=== PATIENT | female | born 1940 | race Caucasian/White ===

== ENCOUNTER 2019-06-23 09:35 | Outpatient (CLI) | payer BC ==
--- NOTE | 2019-06-23 12:38 | CT ---
CT CHEST WITH IV CONTRAST: CT ABDOMEN AND PELVIS WITH IV CONTRAST: HISTORY: Bowel mass. FINDINGS: The lungs are slightly hyperinflated. No enlarged lymph nodes within the mediastinum. No focal lung m ass, pleural fluid or pneumothorax. Calcified bilateral breast implants. Collapsed implant sac within the left implant capsule. Herniatio n of implant from the medial margin. Within the medial aspect of the right pectoralis muscle is a lob ular lipoma, measuring up to 8.7 cm x 4.6 cm. Lipoma is also evident within the left posterior parasp inal musculature, at the level of the lower thoracic spine. Large hiatal hernia with reflux of oral contrast. Calcification within the arterial structures. 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 Dorsal column stimulator is in place. Scattered diverticula of t he colon without adjacent inflammation. There is intussusception of the distal ileum, involving up to 8 cm length that is pulled into the ter kenny ileum. At the lead point is a smoothly marginated homogeneous fat density mass measuring up to 3.6 cm x 2.4 cm. No evidence of bowel obstruction. No free air or free fluid. The urinary bladder is decompressed. IMPRESSION: 1. 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 No bowel o bstruction. 2. Diverticulosis. No evidence of diverticulitis. 3. Hiatal hernia with reflux. 4. Bilateral breast implants with rupture of the left implant. 5. Atherosclerosis. 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 POS: TPC
== END 2019-06-23 09:36 | disposition home or self-care (01) ==
LOC: BICCT 09:35
PROVIDERS: ATTEND Internal Medicine
DX: K63.89 Other specified diseases of intestine (principal); D17.5 Benign lipomatous neoplasm of intra-abdominal organs; K57.30 Diverticulosis of large intestine without perforation or abscess without bleeding; K44.9 Diaphragmatic hernia without obstruction or gangrene; K21.9 Gastro-esophageal reflux disease without esophagitis; I70.90 Unspecified atherosclerosis; Z98.82 Breast implant status
CPT/HCPCS: 71260; 74177; 82565

== ENCOUNTER 2019-07-08 15:01 | Outpatient (CLI) | payer BC ==
[2019-07-08 16:17] LABS: #Eosinphils 0.1 thou/uL (0.0-0.7); #Lymphocytes 2.1 thou/uL (1.20-3.40); #Monocytes 0.8 thou/uL (0.11-0.59); #Neutrophils 4.6 thou/uL (1.40-6.50); %Basophils 0.6 % (0.0-1.0); %Eosinophils 0.9 % (0.0-10.0); %Lymphocytes 28.1 % (21.0-51.0); %Monocytes 10.3 % (0.0-10.0); %Neutrophils 60.1 % (42.0-75.0); Hemoglobin 9.7 g/dL (12.0-16.0); Mean Corpuscular Hemoglobin 20.3 pg (27.0-31.0); Mean Corpuscular Volume 67.6 fL (78.0-98.0); Mean Platelet Volume 9.3 fL (7.4-10.4); Platelet Count 363 thou/uL (130-400); RBC Distribution Width 16.5 % (11.5-14.5); Red Blood Cell (RBC) Count 4.77 mill/uL (4.20-5.40); White Blood Cell (WBC) Count 7.6 thou/uL (4.8-10.8)
[2019-07-08 16:33] LABS: Anion Gap 12 mmol/L (10-20); BUN (Urea Nitrogen) 12 mg/dL (9.8-20.1); Calc. Creatinine Clearance 0 mL/min (70-130); Calcium 9.5 mg/dL (7.8-10.44); Carbon Dioxide 24 mmol/L (23-31); Chloride 107 mmol/L (98-107); Estimated GFR-MDRD 65; Glucose 90 mg/dL (83-110); Potassium 4.3 mmol/L (3.5-5.1); Sodium 139 mmol/L (136-145)
[2019-07-08 18:26] LABS: Anisocytosis SLIGHT = 6-15 cells (100X) (0-5/hpf); Hypochromia SLIGHT = 6-15 cells (100X) (0-5/hpf); MDiff Complete? YES; Microcytosis SLIGHT = 6-15 cells (100X) (0-5/hpf); Ovalocytes SLIGHT = 2-5 cells (100X) (0-1/hpf); Platelet Morphology Comment Appears Adequate; Polychromasia SLIGHT = 2-3 cells (100X) (0-2/hpf)
--- NOTE | 2019-07-11 16:18 | EKG ---
Test Reason : Blood Pressure : / mmHG Vent. Rate : 068 BPM Atrial Rate : 068 BPM P-R Int : 146 ms QRS Dur : 076 ms QT Int : 388 ms P-R-T Axes : 037 -02 -06 degrees QTc Int : 412 ms Normal sinus rhythm Normal ECG No previous ECGs available Confirmed by DR. Niesha AMADOR ([id number]) on 07/11/2019 4:18:21 PM Referred By: LUIS Confirmed By:DR. Niesha AMADOR
== END 2019-07-08 15:02 | disposition home or self-care (01) ==
LOC: LABBT 15:01
PROVIDERS: ATTEND Specialist
DX: Z01.818 Encounter for other preprocedural examination (principal); K63.89 Other specified diseases of intestine
CPT/HCPCS: 80048; 85025; 93005; 93010

== ENCOUNTER 2019-07-08 15:30 | Inpatient (IN) | payer MEDICARE, BC ==
[2019-07-08 16:14] VITALS: BMI 28.5
--- NOTE | 2019-07-09 08:30 | HP ---
HISTORY OF PRESENT ILLNESS: Carolyn Garcia is an 78-year-old female, who presented with cough, underwent a chest x-ray leading to a CAT scan leading to abnormal findings incidentally on CAT scan of ileal mass undergoing EGD and colonoscopy by Dr. Martin. CT scan suggests a lipoma of the distal ileum, 3.6 cm with intussusception of the distal ileum. Also noting bilateral breast implants multiple other lipomas, chest and abdomen. Chest x-ray on 04/06/2019 unremarkable. Upper and lower endoscopy revealing a frondlike villous polypoid partially obstructing 3 to 4 cm diameter, otherwise diverticulosis of sigmoid colon. Upper endoscopy revealed a 3 cm hiatal hernia otherwise normal.Biopsies reveal peptic duodenitis. No Emmanuel esophagus. Biopsy of small bowel terminal ileal mass revealed pyogenic granuloma. No malignancy. The patient reports having intermittent abdominal pain. ALLERGIES: LISINOPRIL. TOBACCO: None. ALCOHOL: Rarely. PAST SURGICAL HISTORY: Transvaginal hysterectomy; spinal cord stimulator, now has been turned off and not used in more than 5 years. She says it does not bother her. She is not bothered to have it removed. MEDICATIONS: Pravastatin 40 mg a day. REVIEW OF SYSTEMS: Ten-point noncontributory. PHYSICAL EXAMINATION: VITAL SIGNS: 149 pounds, 5 feet, 191/92, 69, 98 degrees. HEAD, EARS, EYES, NOSE, AND THROAT: Unremarkable. LUNGS: Clear to auscultation. CARDIAC: Regular rate and rhythm without murmur or gallop. ABDOMEN: Soft and nontender. EXTREMITIES: Unremarkable. ASSESSMENT AND PLAN: 1. Ileal mass, plan laparoscopic resection. Plan admission, postoperatively at least hospitalization overnight. She understands risks of infection, bleeding, reoperation, anastomotic lesion and consents. 2. Hysterectomy. 3. Spinal cord stimulator has been turned off for several years. Job ID: [id number] [facility]
[2019-07-14] MEDS ORDERED: Ketorolac Tromethamine 30 MG/ML VIAL ONE (08:58)
[2019-07-14] MEDS ORDERED: Meropenem 2 GM in Admixture Fee 1 EACH IVPB SCH (09:15)
[2019-07-14] MEDS ORDERED: Fentanyl 100 MCG/2 ML VIAL ONE ×2 (09:40→09:44)
[2019-07-14] MEDS ORDERED: Midazolam HCl 2 mg/2 ml Vial ONE (09:40)
[2019-07-14] MEDS ORDERED: PROPOFOL 200 MG/20 ML VIAL ONE (10:09)
[2019-07-14] MEDS ORDERED: Dexamethasone 20 MG/5 ML VIAL ONE (10:09)
[2019-07-14] MEDS ORDERED: Lidocaine 1% PF 5 ML VIAL ONE (10:09)
[2019-07-14] MEDS ORDERED: Ropivacaine 0.5% HCl/PF (150 MG/30 ML VIAL) ONE (10:09)
[2019-07-14] MEDS ORDERED: Bupivacaine HCl 0.5%/Epinephrine 1:200,000/PF 30 ml Vial ONE (10:09)
[2019-07-14] MEDS ORDERED: Rocuronium Bromide 10 MG/ML (10ML VIAL) ONE (10:09)
[2019-07-14] MEDS ORDERED: EPINEPHrine 1 mg/ml MDV (1ml Charge) ONE (10:09)
[2019-07-14] MEDS ORDERED: Ondansetron PF 4 MG/2 ML Vial ONE (10:09)
[2019-07-14] MEDS ORDERED: PHENYLEPHRINE-NS 100 MCG/ML 10 ML SYRINGE ONE (10:09)
[2019-07-14] MEDS ORDERED: Ondansetron HCl/PF 4 MG/2 ML Vial IVP PRN (10:54)
[2019-07-14] MEDS ORDERED: Morphine 4 MG/ML VIAL SLOW IVP PRN (11:41)
[2019-07-14] MEDS ORDERED: Ondansetron PF 4 MG/2 ML Vial IVP PRN (11:41)
[2019-07-14] MEDS ORDERED: hydrALAZINE 20 MG/ML VIAL SLOW IVP PRN (11:41)
[2019-07-14] MEDS ORDERED: Morphine 2 MG/ML SYRINGE SLOW IVP PRN (11:41)
[2019-07-14] MEDS ORDERED: diphenhydrAMINE 50 MG/ML VIAL IVP PRN (11:41)
[2019-07-14] MEDS ORDERED: traMADol HCl 50 MG TAB PO PRN (11:45)
[2019-07-14] MEDS ORDERED: Acetaminophen 500 MG TAB PO PRN (11:45)
[2019-07-14] MEDS ORDERED: Ibuprofen 600 MG TAB PO PRN (11:45)
[2019-07-14] MEDS: Acetaminophen 1,000 MG in Premix Bag 1 BAG IVPB SCH ×3 (13:39→23:24)
[2019-07-14] MEDS: Ketorolac Tromethamine 30 MG/ML VIAL IVP SCH ×3 (13:40→23:24)
--- NOTE | 2019-07-14 14:11 | OP ---
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 PROCEDURES PERFORMED: Laparoscopic segmental small-bowel resection with primary anastomosis and reduction of intussusception. ANESTHESIA: General, TAP block. ESTIMATED BLOOD LOSS: Negligible. PROCEDURE FINDINGS: Intussusception ileum and small bowel tumor. DESCRIPTION OF PROCEDURE: The patient was taken to the operating room where under general anesthesia without a Murdock catheter, abdomen was clipped of hair, prepared with ChloraPrep and draped in routine fashion. Left lateral subcostal incision made and pneumoperitoneum to 15 mmHg was obtained with a Veress needle, replaced with a 5 port. Left lateral mid and left lower quadrant lateral incision made and 5 ports placed. Infraumbilical incision made and a 5 port placed. Omentum reflected cephalad. There was noted to be a tattooed area in the terminal ileum. The ileum was intussuscepted into the terminal ileum and into the cecum. This was reduced laparoscopically. The tumor mass appreciated laparoscopically. A 12 port placed in the lateral left abdomen and the small bowel on either side of the tumor mass divided with a KRISHNA white loaded stapler. Mesentery divided with the LigaSure for a wedge of mesentery. There was adequate ileum for small bowel anastomosis and small bowel anastomosis accomplished with enterotomy on each side of the ends of the resected small bowel and the stapler placed and fired and common defect closed with another fire of the white load stapler. Mesentery closed with 3-0 silk [id number] sutures. Anastomosis noted to be intact and good hemostasis noted. No other abnormalities noted. The small bowel tumor mass was then brought out through the 12 port using a wound protector. Pneumoperitoneum and irrigant evacuated. Good hemostasis noted. All this was removed. The 15 mm port where it had been enlarged for the wound protector, the peritoneum and fascia closed with 0 PDS interrupted suture and anterior fascia closed with 0 PDS suture. Wounds irrigated. All skin incisions were approximated with subdermal 4-0 Monocryl and [place] glue applied. The patient tolerated the procedure well. Job ID: [id number]
[2019-07-14] MEDS: D5 1/2 NS w/20 mEq KCL 1,000 ML IV SCH ×2 (14:44→23:26)
[2019-07-14] MEDS: Atorvastatin Calcium 10 MG TAB PO SCH (20:15)
[2019-07-14] MEDS: Enoxaparin Sodium 40 MG/0.4 ML SYRINGE SC SCH (20:17)
[2019-07-15 05:01] LABS: #Lymphocytes 1.3 thou/uL (1.20-3.40); %Basophils 0.1 % (0.0-1.0); %Lymphocytes 8.5 % (21.0-51.0); %Monocytes 6.6 % (0.0-10.0); %Neutrophils 84.8 % (42.0-75.0); Hemoglobin 8.5 g/dL (12.0-16.0); Mean Corpuscular HGB CONC 30.3 g/dL (32.0-36.0); Mean Corpuscular Hemoglobin 20.5 pg (27.0-31.0); Mean Corpuscular Volume 67.8 fL (78.0-98.0); Mean Platelet Volume 9.6 fL (7.4-10.4); Platelet Count 289 thou/uL (130-400); RBC Distribution Width 16.3 % (11.5-14.5); Red Blood Cell (RBC) Count 4.13 mill/uL (4.20-5.40); White Blood Cell (WBC) Count 15.3 thou/uL (4.8-10.8)
[2019-07-15 05:21] LABS: Anion Gap 9 mmol/L (10-20); BUN (Urea Nitrogen) 12 mg/dL (9.8-20.1); Calc. Creatinine Clearance 56 mL/min (70-130); Carbon Dioxide 26 mmol/L (23-31); Chloride 107 mmol/L (98-107); Estimated GFR-MDRD 63; Glucose 115 mg/dL (83-110); Potassium 4.6 mmol/L (3.5-5.1); Sodium 137 mmol/L (136-145)
[2019-07-15] MEDS: Ketorolac Tromethamine 30 MG/ML VIAL IVP SCH ×3 (06:34→18:20)
[2019-07-15] MEDS: Acetaminophen 1,000 MG in Premix Bag 1 BAG IVPB SCH (06:36)
[2019-07-15] MEDS: D5 1/2 NS w/20 mEq KCL 1,000 ML IV SCH ×3 (06:36→19:28)
[2019-07-15] MEDS: Pantoprazole 40 MG VIAL IVP SCH (08:17)
--- NOTE | 2019-07-15 14:35 | PRG ---
DATE OF SERVICE: SUBJECTIVE: Carolyn Garcia is doing well today. She is tolerating her diet. She has not had any experienced flatus or bowel movement. OBJECTIVE: VITAL SIGNS: Temperature 98.2 degrees, pulse 59, blood pressure 163/71. LUNGS: Clear to auscultation. CARDIAC: Regular rate and rhythm without murmur or gallop. ABDOMEN: Soft, nontender. Bowel sounds present. Surgical wounds look good. EXTREMITIES: Unremarkable. ASSESSMENT: Small bowel tumor with intussusception, status post laparoscopic resection yesterday. PLAN: Observe today and probably discharge home tomorrow. Overall, she is doing well. Job ID: [id number]
[2019-07-15] MEDS: Atorvastatin Calcium 10 MG TAB PO SCH (20:01)
[2019-07-15] MEDS: Enoxaparin Sodium 40 MG/0.4 ML SYRINGE SC SCH (20:01)
[2019-07-16] MEDS: Ketorolac Tromethamine 30 MG/ML VIAL IVP SCH ×3 (00:08→11:28)
[2019-07-16] MEDS: D5 1/2 NS w/20 mEq KCL 1,000 ML IV SCH ×2 (04:07→11:28)
[2019-07-16] MEDS: Pantoprazole 40 MG VIAL IVP SCH (08:25)
--- NOTE | 2019-07-16 10:40 | DIS ---
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 Pathology report pending. PROCEDURES IN THIS HOSPITALIZATION: Laparoscopic reduction of intussusception and small-bowel resection, ileum with primary anastomosis, laparoscopic. LABORATORY DATA: Discharge hemoglobin 8.5. Admission hemoglobin 9.7. DISCHARGE MEDICATIONS: Tylenol and Motrin as needed. Resume home medications. Pravastatin. DISCHARGE INSTRUCTIONS: Diet and activity as tolerated. Follow up in my office in 2 to 3 weeks. Pathology pending. HISTORY: An 78-year-old female. CAT scan demonstrating intussusception, small-bowel tumor, seen by Dr. Martin. Colonoscopy performed. Area biopsied and pedunculated small bowel tumor noted. The patient admitted, underwent the above operation. Postoperatively, did well and discharged to home. Job ID: [id number]
[2019-07-16 11:55] VITALS: BP 166/79; TEMP 98.2
== END 2019-07-16 12:09 | disposition home or self-care (01) | DRG 330 ==
LOC: SURG A 07-14 08:39
PROVIDERS: ADMIT Specialist; ATTEND Specialist
PROC: 0DSB4ZZ Reposition Ileum, Percutaneous Endoscopic Approach (ICD-10-PCS; principal; 2019-07-14)
PROC: 0DBB4ZZ Excision of Ileum, Percutaneous Endoscopic Approach (ICD-10-PCS; 2019-07-14)
DX: D49.0 Neoplasm of unspecified behavior of digestive system (principal); K56.1 Intussusception; Z88.8 Allergy status to other drugs, medicaments and biological substances; Z90.710 Acquired absence of both cervix and uterus; I10 Essential (primary) hypertension; E78.5 Hyperlipidemia, unspecified; Z98.49 Cataract extraction status, unspecified eye; K57.90 Diverticulosis of intestine, part unspecified, without perforation or abscess without bleeding; K44.9 Diaphragmatic hernia without obstruction or gangrene
CPT/HCPCS: 36415; 80048; 85025; 88307; 94760; C9113; J0131; J0171; J0360; J0670; J1100; J1650; J1885; J2001; J2250; J2270; J2405; J2704; J2795; J3010

== ENCOUNTER 2019-09-09 08:22 | Day surgery (SDC) | payer BC ==
[2019-09-09 11:37] LABS: #Eosinphils 0.1 thou/uL (0.0-0.7); #Lymphocytes 1.5 thou/uL (1.20-3.40); #Monocytes 0.6 thou/uL (0.11-0.59); #Neutrophils 4.1 thou/uL (1.40-6.50); %Basophils 0.1 % (0.0-1.0); %Eosinophils 1.4 % (0.0-10.0); %Lymphocytes 24.1 % (21.0-51.0); %Monocytes 9.7 % (0.0-10.0); %Neutrophils 64.7 % (42.0-75.0); Elliptocytes SLIGHT = 2-5 cells (100X) (0-1/hpf); Hemoglobin 7.1 g/dL (12.0-16.0); Hypochromia MODERATE=16-30 cells (100X) (0-5/hpf); MDiff Complete? YES; Mean Corpuscular Hemoglobin 18.4 pg (27.0-31.0); Mean Corpuscular Volume 63.3 fL (78.0-98.0); Mean Platelet Volume 10.8 fL (7.4-10.4); Microcytosis MODERATE=15-30 cells (100X) (0-5/hpf); Ovalocytes SLIGHT = 2-5 cells (100X) (0-1/hpf); Platelet Count 296 thou/uL (130-400); Polychromasia SLIGHT = 2-3 cells (100X) (0-2/hpf); RBC Distribution Width 17.2 % (11.5-14.5); Red Blood Cell (RBC) Count 3.87 mill/uL (4.20-5.40); Reflex for Review?? YES; Schistocytes SLIGHT = 2-5 cells (100X) (0-1/hpf); Tear Drops SLIGHT = 2-5 cells (100X) (0-1/hpf); White Blood Cell (WBC) Count 6.3 thou/uL (4.8-10.8)
[2019-09-09 15:56] VITALS: BP 196/85; TEMP 98.3
== END 2019-09-09 16:01 | disposition home or self-care (01) ==
LOC: ONC/OP 08:22
PROVIDERS: ATTEND Specialist
DX: D64.9 Anemia, unspecified (principal); D69.6 Thrombocytopenia, unspecified; Z88.8 Allergy status to other drugs, medicaments and biological substances
CPT/HCPCS: 36415; 36430; 85025; 85060; 86850; 86900; 86901; P9016

== ENCOUNTER 2019-09-15 11:37 | Outpatient (CLI) | payer BC ==
--- NOTE | 2019-09-15 13:07 | ULT ---
EXAM: US Thyroid STANDARD PROVIDED CLINICAL HISTORY: Thyroid nodule COMPARISON: None FINDINGS: The right lobe of thyroid gland measures 2.2 cm x 4.1 cm x 1.5 cm with the left lobe measuring 1.6 cm x 3.2 cm x 1.2 cm. There is an isoechoic round circumscribed nodule seen in the midportion and superior pole right lobe of the thyroid gland. This nodule measures 1.7 cm, and a few punctate echogenic foci are seen within the nodule. Multiple isoechoic and mildly heterogeneous nodules are seen in the left lobe of the thyroid gland. L argest slightly heterogeneous nodule is seen in the midportion left lobe of thyroid gland which measures 1.5 cm. The next largest nodule is seen in the inferior pole left lobe of thyroid gland whic h measures 1.3 cm. IMPRESSION: TI RADS level 4 nodule right lobe of the thyroid gland. According to ACR guidelines, fine-needle aspi ration of this nodule is recommended.
== END 2019-09-15 11:38 | disposition home or self-care (01) ==
LOC: BICULT 11:37
PROVIDERS: ATTEND Specialist
DX: E04.1 Nontoxic single thyroid nodule (principal)
CPT/HCPCS: 76536

== ENCOUNTER → 2019-10-13 | Day surgery (SDC) | payer BC ==
[~2019-10-13] MED LIST: Lidocaine 1% PF 5 ML VIAL ONE; Sodium Bicarbonate 2.5 MEQ/5 ML VIAL ONE
== END ==
LOC: ULT 12:14
PROVIDERS: ATTEND Specialist
DX: E04.1 Nontoxic single thyroid nodule (principal); I10 Essential (primary) hypertension; E78.5 Hyperlipidemia, unspecified; Z53.9 Procedure and treatment not carried out, unspecified reason; Z79.899 Other long term (current) drug therapy; Z88.8 Allergy status to other drugs, medicaments and biological substances; Z90.49 Acquired absence of other specified parts of digestive tract
CPT/HCPCS: J2001

== ENCOUNTER 2020-05-12 12:33 | Outpatient (CLI) | payer BC, OTHER ==
[2020-05-13 14:49] LABS: SARS-CoV-2 MS2 Positive; SARS-CoV-2 N Gene Negative; SARS-CoV-2 S Gene Negative; SARS-CoV-2 by NAA Not Detected (NotDetected); SARS-CoV-2 orf1ab Negative
== END 2020-05-12 12:34 | disposition home or self-care (01) ==
LOC: LABSCS 12:33
PROVIDERS: ATTEND Specialist
DX: E04.1 Nontoxic single thyroid nodule (principal); Z20.828 Contact with and (suspected) exposure to other viral communicable diseases
CPT/HCPCS: 87635; U0003

== ENCOUNTER 2020-05-17 12:04 | Day surgery (SDC) | payer BC ==
[2020-05-17] MEDS ORDERED: Sodium Bicarbonate 2.5 MEQ/5 ML VIAL ONE (12:26)
[2020-05-17] MEDS ORDERED: Lidocaine 1% PF 5 ML VIAL ONE (12:26)
--- NOTE | 2020-05-17 14:17 | ULT ---
Exam: Right thyroid fine-needle aspiration with ultrasound guidance HISTORY: Solid mass in the right thyroid lobe COMPARISON: 09/15/2019 FINDINGS: Successful right thyroid ultrasound fine needle aspiration. A total 4 25-gauge passes were performed. No immediate or postprocedure complications TECHNIQUE: Consent obtained to perform a ulcer guided fine-needle aspiration of a solid mass in the r ight thyroid lobe. Patient's right neck was prepped and draped in a sterile fashion. 1% lidocaine, buffered with sodium bicarbonate was used for local anesthesia. Under sonographic guidance, 25-gauge spinal needle was advanced into the solid mass in the right thyroid lobe. A total 4 passes were performed. There are no immediate or postprocedure complications IMPRESSION: Successful fine-needle aspiration of a right thyroid lobe solid mass.
[2020-05-17 14:47] VITALS: BMI 29.5
[2020-05-17 15:00] VITALS: BP 172/69; TEMP 97.8
== END 2020-05-17 14:20 | disposition home or self-care (01) ==
LOC: ULT 12:04
PROVIDERS: ATTEND Specialist
PROC: BG44ZZZ Ultrasonography of Thyroid Gland (ICD-10-PCS; principal; 2020-05-17)
PROC: 0GJK3ZZ Inspection of Thyroid Gland, Percutaneous Approach (ICD-10-PCS; principal; 2020-05-17)
DX: E04.1 Nontoxic single thyroid nodule (principal); G89.29 Other chronic pain; R51 Headache; Z79.899 Other long term (current) drug therapy; Z88.8 Allergy status to other drugs, medicaments and biological substances
CPT/HCPCS: 60100; 76942; 88173